=== PATIENT | female | born 1985 | race Hispanic/Latino ===

== ENCOUNTER 2019-12-03 01:09 | Emergency (ER) | payer SELFPAY ==
[2019-12-03] MEDS ORDERED: Acetaminophen 500 MG TAB ONE (01:30)
--- NOTE | 2019-12-03 08:02 | RAD ---
EXAM: XR Chest 1 View Portable PROVIDED CLINICAL HISTORY: Cough and congestion COMPARISON: None FINDINGS: Cardiac and mediastinal silhouette is within normal limits. Airspace disease left lung base. Right carlos eduardo ng appears clear. No pleural fluid or pneumothorax apparent. IMPRESSION: Left basilar airspace disease, compatible with pneumonia in the appropriate clinical context.
== END 2019-12-03 02:25 | disposition home or self-care (01) ==
LOC: ERS 01:09
DX: J20.9 Acute bronchitis, unspecified (principal); F17.210 Nicotine dependence, cigarettes, uncomplicated; Z71.6 Tobacco abuse counseling
CPT/HCPCS: 71045; 87804; 99406